=== PATIENT | male | born 1985 | race Asian ===

== ENCOUNTER 2017-05-06 22:08 | Observation (INO) | payer OTHER ==
[2017-05-06] MEDS: SOD CHLORIDE 0.9% 1,000 ML IV (22:46)
[2017-05-06 22:47] LABS: ADD MAN DIFF? NO
[2017-05-06 22:53] LABS: WHITE BLOOD COUNT 11.4 10^3/ul (4.8-10.8)
[2017-05-06 22:53] LABS: BASOPHILS % 0.4 % (0.0-2.0); EOSINOPHILS # 0.1 10^3/ul (0.0-0.5); EOSINOPHILS % 1.1 % (0.0-7.0); HEMATOCRIT 31.9 % (42.0-52.0); HEMOGLOBIN 10.3 g/dl (14.0-18.0); LYMPHOCYTES # 2.7 10^3/ul (0.8-2.9); MEAN CORPUSCULAR HEMOGLOBIN 24.6 pg (29.0-33.0); MEAN CORPUSCULAR HGB CONC 32.3 g/dl (32.0-37.0); MEAN CORPUSCULAR VOLUME 76.1 fl (82.0-101.0); MEAN PLATELET VOLUME 9.4 fl (7.4-10.4); MONOCYTE # 0.8 10^3/ul (0.3-0.9); MONOCYTES % 7.1 % (0.0-11.0); NEUTROPHIL # 7.6 10^3/ul (1.6-7.5); NEUTROPHILS % 66.9 % (39.0-77.0); PLATELET COUNT 305 10^3/UL (140-415); RED BLOOD COUNT 4.19 10^6/ul (4.70-6.10); RED CELL DISTRIBUTION WIDTH 12.5 % (11.5-14.5)
[2017-05-06 23:08] LABS: ALANINE AMINOTRANSFERASE 28 IU/L (13-69); ALBUMIN 3.7 g/dl (3.3-4.9); ALBUMIN/GLOBULIN RATIO 1.02; ALKALINE PHOSPHATASE 133 IU/L (42-121); ANION GAP 16 (8-16); ASPARTATE AMINO TRANSFERASE 20 IU/L (15-46); BILIRUBIN,INDIRECT 0.1 mg/dl (0-1.1); BILIRUBIN,TOTAL 0.1 mg/dl (0.2-1.3); BLOOD UREA NITROGEN 14 mg/dl (7-20); CALCIUM 8.8 mg/dl (8.4-10.2); CARBON DIOXIDE 25 mmol/L (21-31); CHLORIDE 102 mmol/L (97-110); CREATININE 0.75 mg/dl (0.61-1.24); GLUCOSE 359 mg/dl (70-220); LIPASE 101 U/L (23-300); POTASSIUM 4.2 mmol/L (3.5-5.1); SODIUM 139 mmol/L (135-144); TOTAL PROTEIN 7.3 g/dl (6.1-8.1)
[2017-05-07] MEDS ORDERED: ONDANSETRON 4 MG INJ IV
[2017-05-07] MEDS ORDERED: ACETAMINOPHEN 325 MG TAB PO
[2017-05-07] MEDS ORDERED: GLUCOSE GEL 15 GRAM TUBE BUCCAL
[2017-05-07] MEDS ORDERED: GLUCAGON 1 MG INJ IM
[2017-05-07] MEDS ORDERED: GLUCOSE GEL 15 GRAM TUBE PO ×2
[2017-05-07] MEDS ORDERED: DOCUSATE SODIUM 100 MG CAP PO
[2017-05-07] MEDS ORDERED: NACL 0.9% 3 ML SYG IV
[2017-05-07] MEDS ORDERED: BISACODYL (EC) 5 MG TAB PO
[2017-05-07] MEDS ORDERED: DEXTROSE 50% 50 ML SYRINGE IV ×2
[2017-05-07] MEDS: INSULIN LISPRO 100 UNIT/ML VIAL SC (00:01)
[2017-05-07 00:11] LABS: IRON 41 ug/dl (35-150)
[2017-05-07 00:20] LABS: % IRON SATURATION 14 % SAT (22-52); TOTAL IRON BINDING CAPACITY 301 ug/dl (241-421)
[2017-05-07 00:46] LABS: FERRITIN 54.2 ng/ml (17.9-464.0)
[2017-05-07] MEDS ORDERED: LORAZEPAM 2 MG INJ IV (02:00)
[2017-05-07] MEDS: ACCU-CHEK XX (02:25)
[2017-05-07 06:07] LABS: ADD MAN DIFF? NO
[2017-05-07 06:14] LABS: WHITE BLOOD COUNT 8.7 10^3/ul (4.8-10.8)
[2017-05-07 06:14] LABS: BASOPHILS % 0.5 % (0.0-2.0); EOSINOPHILS # 0.2 10^3/ul (0.0-0.5); EOSINOPHILS % 2.2 % (0.0-7.0); HEMATOCRIT 31.3 % (42.0-52.0); HEMOGLOBIN 10.3 g/dl (14.0-18.0); LYMPHOCYTES # 2.4 10^3/ul (0.8-2.9); LYMPHOCYTES % 27.9 % (15.0-51.0); MEAN CORPUSCULAR HEMOGLOBIN 24.8 pg (29.0-33.0); MEAN CORPUSCULAR HGB CONC 32.9 g/dl (32.0-37.0); MEAN CORPUSCULAR VOLUME 75.2 fl (82.0-101.0); MEAN PLATELET VOLUME 9.3 fl (7.4-10.4); MONOCYTE # 0.6 10^3/ul (0.3-0.9); MONOCYTES % 6.7 % (0.0-11.0); NEUTROPHIL # 5.4 10^3/ul (1.6-7.5); PLATELET COUNT 285 10^3/UL (140-415); RED BLOOD COUNT 4.16 10^6/ul (4.70-6.10); RED CELL DISTRIBUTION WIDTH 12.6 % (11.5-14.5)
[2017-05-07 06:50] LABS: ALANINE AMINOTRANSFERASE 26 IU/L (13-69); ALBUMIN 3.7 g/dl (3.3-4.9); ALBUMIN/GLOBULIN RATIO 1.05; ALKALINE PHOSPHATASE 114 IU/L (42-121); ANION GAP 17 (8-16); ASPARTATE AMINO TRANSFERASE 23 IU/L (15-46); BILIRUBIN,INDIRECT 0.1 mg/dl (0-1.1); BILIRUBIN,TOTAL 0.1 mg/dl (0.2-1.3); BLOOD UREA NITROGEN 16 mg/dl (7-20); CALCIUM 8.8 mg/dl (8.4-10.2); CARBON DIOXIDE 26 mmol/L (21-31); CHLORIDE 105 mmol/L (97-110); CHOL/HDL RATIO 2.6 RATIO; CHOLESTEROL 133 mg/dl (100-200); CREATININE 0.56 mg/dl (0.61-1.24); GLUCOSE 232 mg/dl (70-220); HDL CHOLESTEROL 50 mg/dl (28-63); LDL CHOLESTEROL,CALCULATED 64 mg/dl; MAGNESIUM 1.6 mg/dl (1.7-2.5); POTASSIUM 3.7 mmol/L (3.5-5.1); SODIUM 144 mmol/L (135-144); TOTAL PROTEIN 7.2 g/dl (6.1-8.1); TRIGLYCERIDES 96 mg/dl (0-149)
[2017-05-07 07:15] LABS: THYROID STIMULATING HORMONE 0.867 MIU/L (0.465-4.680)
[2017-05-07 08:52] LABS: BARBITURATES Negative (NEGATIVE); BENZODIAZEPINES Negative (NEGATIVE); CANNABINOIDS Negative (NEGATIVE); COCAINE Negative (NEGATIVE); OPIATES Negative (NEGATIVE)
[2017-05-07 08:53] LABS: AMPHETAMINE/METHAMPHETAMINE Positive (NEGATIVE)
[2017-05-07] MEDS: INSULIN ASPART [NOVOLOG] 3 ML PEN SC ×3 (09:31→12:18)
[2017-05-07 09:55] LABS: OCCULT BLOOD STOOL NEGATIVE (NEGATIVE)
[2017-05-07 10:04] LABS: HEMOGLOBIN A1C 10.5 % (0-5.9)
[2017-05-07] MEDS: INFLUENZA VIRUS VACCINE 0.5 ML SYG IM* (10:50)
[2017-05-07] MEDS ORDERED: INSULIN GLARGINE [LANtus] 3 ML PEN SC (20:00)
[2017-05-10 14:56] LABS: CREATININE, RANDOM URINE 37 mg/dL (20-370); MICROALBUMIN 0.2 mg/dL; MICROALBUMIN/CREATININE RATIO 5 (<30)
== END 2017-05-07 15:20 | disposition home or self-care (01) ==
LOC: MS2 23:32 → E/R 22:08 → MS2 05-07 00:58
PROVIDERS: Family Medicine
DX: E11.65 Type 2 diabetes mellitus with hyperglycemia (principal); F15.99 Other stimulant use, unspecified with unspecified stimulant-induced disorder; F32.9 Major depressive disorder, single episode, unspecified; F41.9 Anxiety disorder, unspecified; Z23 Encounter for immunization
CPT/HCPCS: 36415; 71045; 74176; 80053; 80061; 80307; 82043; 82270; 82728; 82962; 83036; 83540; 83690; 83735; 84443; 85025; 90686; 96372; 99285-25